=== PATIENT | female | born 2000 | race Caucasian/White ===

== ENCOUNTER → 2021-10-08 15:22 | Outpatient (BNVA) | payer OTHER, MEDICAID, SELFPAY | PROVIDERS: PCP Internal Medicine; Visit Provider Nurse Practitioner Family | DX: R51.9 Headache, unspecified (principal); R06.00 Dyspnea, unspecified | CPT/HCPCS: 99212 ==

== ENCOUNTER → 2022-01-11 14:46 | Outpatient (BNVA) | payer OTHER, MEDICAID, SELFPAY | PROVIDERS: PCP Internal Medicine; Visit Provider Nurse Practitioner Family | DX: R51.9 Headache, unspecified (principal) | CPT/HCPCS: 99212 ==

== ENCOUNTER → 2022-07-26 10:37 | Outpatient (BNVA) | payer OTHER, SELFPAY | PROVIDERS: PCP Internal Medicine; Visit Provider Nurse Practitioner Family | DX: O26.892 Other specified pregnancy related conditions, second trimester (principal); R51.9 Headache, unspecified; Z79.82 Long term (current) use of aspirin; Z3A.20 20 weeks gestation of pregnancy | CPT/HCPCS: 99212 ==

== ENCOUNTER → 2022-10-23 10:04 | Outpatient (BNVA) | payer OTHER, SELFPAY | PROVIDERS: PCP Internal Medicine; Visit Provider Nurse Practitioner Family | DX: Z39.2 Encounter for routine postpartum follow-up (principal); R51.9 Headache, unspecified; H61.23 Impacted cerumen, bilateral | CPT/HCPCS: 99212 ==

== ENCOUNTER 2023-01-29 11:36 | Outpatient (AMB) | payer OTHER, SELFPAY ==
[2023-01-29 11:37] VITALS: BP 102/70; BMI 27.2
--- NOTE | 2023-01-29 11:37 | MHC.OFFVIS ---
Intake Vital Signs 01/29/23 11:37 Height 5 ft 1 in Weight 144 lb 2 oz BMI 27.2 BP 102/70 Blood Pressure Location Lt brachial Position Sitting Intake Visit Reasons: 3M follow up headache Intake Note: Pt presents as a 3 month f/u for headaches. Pt states things are going good. Pt states no concerns. 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 Pt reports she is 2 months . The delivery was uncomplicated. She notes that about 2 weeks , she had a few of her typical headaches. She used Ibuprofen, Schuyler balm, and rest which helped within an hour. Since, she had had 1-3 headaches since then- also responsive to her home regimen. [facility] Surgical History No pertinent past surgical history Social History Household Members: Significant Other and Children Alcohol intake: current Alcohol intake frequency: does not drink Patient Tobacco Use Status: Never used Tobacco Current occupational status: unemployed Review of Systems Const All systems reviewed & are unremarkable except as noted in HPI and below Physical Exam Vital Signs: Last Vital Signs BP 102/70 01/29/23 11:37 BMI result Body Mass Index 27.2 Const General: cooperative and no acute distress Orientation/consciousness: patient oriented x3 HEENT Head: Yes normocephalic Resp Effort & Inspection: normal respiratory effort and able to speak in complete sentences Neuro General: patient oriented x3, gait normal and CN's II-XI intact bilaterally Cognition (Neuro): normal cognition Motor exam (neuro): 5/5 motor strength present throughout Psych Appearance: grossly normal Mental Status: mental status grossly normal Speech and movement: Normal speech and movement present Affect: normal affect Attitude: cooperative Thought process: Normal thought process present Thought content: Normal thought content present Insight: Good insight present (Psych) Judgement: Good judgement present (Psych) Assessment & Plan Assessment & Plan (1) Headache: Comment: Started 6 weeks . frontal and occipital tightness and head pressure a/w photophobia/phonophobia/nausea/dizziness/fogginess. ? central or CV etiology- unlikely d/t normal MRI/MRA brain, Code(s): R51.9 - Headache, unspecified Plan May continue prn Tylenol, rest. May use topical Schuyler balm prn Monitor headaches- if headaches worsen- consider resuming nifedipine. f/u in 6-12 or sooner prn new/worsening s/s. Coding Level of Care Code Est Pt Level 3 (23592) Diagnoses Headache R51.9
== END 2023-01-29 12:09 | disposition home or self-care (01) ==
PROVIDERS: Visit Provider Nurse Practitioner Family
DX: R51.9 Headache, unspecified (principal)
CPT/HCPCS: 99213

== ENCOUNTER → 2023-01-29 11:36 | Outpatient (BNVA) | payer OTHER, SELFPAY | PROVIDERS: Visit Provider Nurse Practitioner Family | DX: R51.9 Headache, unspecified (principal) | CPT/HCPCS: 99212 ==